=== PATIENT | female | born 1990 | race Caucasian/White ===

== ENCOUNTER 2018-08-17 18:32 | Emergency (ER) | payer MEDICAID ==
--- NOTE | 2018-08-17 19:00 | ED Physician Chart ---
ED Chief Complaint/HPI - Patient Information Date Seen:: 08/17/18 Time Seen:: 18:50 Chief Complaint:: Feeling anxious today. History of Present Illness:: Pt came in by private auto. Pt states that she has h/o anxiety disorder and was previously treated with Xanax about a year ago. Pt had a panic attack earlier. Pt now appears to be comfortable without distress. Pt does not give consistent history. Pt requests to have a prescription for Xanax. Allergies:: Allergies Allergy/AdvReac Type Severity Reaction Status Date / Time lamotrigine [From Lamictal] Allergy Verified 08/17/18 18:42 Vitals:: Vital Signs - 8 hr 08/17/18 18:32 Temp 97.2 F HR 106 RR 16 BP 147/86 O2 Sat % 95 Historian:: Patient Family MD/PCP:: unknown LMP:: 07/20/2018 Review:: Nurse's Note Reviewed ED Review of Systems - Review of Systems General/Constitutional: No fever, No weight loss, No weakness, No loss of appetite Skin: No skin lesions, No rash, No bruising Head: No headache, No light-headedness Eyes: No loss of vision, No pain ENT: No earache, No nasal drainage, No sore throat Neck: No neck pain, No swelling, No thyromegaly, No stiffness Cardio Vascular: No chest pain Pulmonary: No SOB, No cough, No wheezing GI: No nausea, No vomiting, No pain G/U: No dysuria, No frequency, No hematuria Watch Crystal Cutter: No vaginal discharge, No abnormal vaginal bleed Musculoskeletal: No bone or joint pain Endocrine: No polyuria, No polydipsia Psychiatric: Prior psych history, No depression, Anxiety, No suicidal ideation, No homicidal ideation, No auditory hallucination, No visual hallucination Hematopoietic: No bruising, No lymphadenopathy Allergic/Immuno: No urticaria, No angioedema Neurological: No syncope, No focal symptoms, No weakness, No paresthesia, No headache, No dizziness, No confusion ED Past Medical History - Past Medical History Past Medical History: Asthma/COPD Family History: Diabetes Melitus (MGM), Cancer (breast CA in M aunt.) Social History: Non Smoker, No Alcohol, No Drug Use, Single, Employed Employment:: Caregiver Surgical History: None Psychiatricy History: Other (Anxiety disorder) Medication: None Family Medical History - Family Member Mother History Unknown: Yes ED Physical Exam - Physical Examination General/Constitutional: Awake, Well-developed, well-nourished (female), Alert, No distress, Non-toxic appearing, Ambulatory Other Gen/Cons comments:: Breathes comfortably and speaks clearly. Head: Atraumatic Eyes: Lids, conjuctiva normal, PERRL, EOMI Skin: Nl inspection, No rash, No ecchymosis, Well hydrated, No lymphadenopathy ENMT: External ears, nose nl, Nasal exam nl, Oropharynx nl Neck: Nontender, Full ROM w/o pain, No nuchal rigidity, No mass Respiratory: Nl effort/Exclusion, Clear to Auscultation, No Wheeze/Rhonchi/Rales Cardio Vascular: RRR ( HR 90), No murmur, gallop, rubs Extremities: No edema Neuro/Psych: Alert/oriented (oriented x 3.), Normal gait, No focal deficits ED Septic Shock - . Is Septic Shock (SBP<90, OR Lactate>4 mmol\L) present?: No - <6hrs of presentation: Vital Signs: Vital Signs - 8 hr 08/17/18 18:32 Temp 97.2 F HR 106 RR 16 BP 147/86 O2 Sat % 95 ED Reassessment (Disposition) - Reassessment Reassessment:: 1911 Pt remains stable and is in no distress. Discussed with pt at length about relaxation techniques, etc. Pt insists on getting Xanax. I discussed with nursing staff who felt that pt does exhibit drug seeking behavior. Pt just walked out before I can discuss with her further. Reassessment Condition:: Improved - Diagnosis Diagnosis:: Anxiety disorder by hx. Stable. Probable drug seeking behavior. - Patient Disposition Discharge/Transfer:: [facility] Time:: 19:12 Condition at Disposition:: Stable
== END 2018-08-17 19:10 | disposition left against medical advice (07) ==
LOC: ER 18:32
DX: F41.9 Anxiety disorder, unspecified (principal); J44.9 Chronic obstructive pulmonary disease, unspecified; Z88.8 Allergy status to other drugs, medicaments and biological substances